=== PATIENT | female | born 1985 | race Caucasian/White ===

== ENCOUNTER 2017-01-03 06:49 | Inpatient (IN) | payer OTHER ==
[2017-01-03] MEDS ORDERED: Penicillin G Potassium 5 MILL.UNITS VIAL ONE (07:15)
[2017-01-03] MEDS: Lactated Ringer's 1,000 ML IV SCH ×3 (07:27→12:23)
[2017-01-03 07:54] VITALS: BMI 21.1
[2017-01-03] MEDS ORDERED: Ondansetron HCl/PF 4 MG/2 ML Vial IVP PRN ×3 (09:14→14:53)
[2017-01-03] MEDS ORDERED: Ibuprofen 800 MG TAB PO PRN (09:14)
[2017-01-03] MEDS ORDERED: LR / Pitocin 40 units/1000 ml 1,000 ML IV PRN (09:14)
[2017-01-03] MEDS ORDERED: Promethazine HCl 25 MG/ML VIAL IM PRN ×2 (09:14→10:54)
[2017-01-03] MEDS ORDERED: Acetaminophen/Codeine 30-300mg Tablet PO PRN ×3 (09:14→14:53)
[2017-01-03] MEDS ORDERED: Lidocaine 1% (PF) 30 ML VIAL SC PRN (09:14)
[2017-01-03] MEDS ORDERED: Penicillin G Potassium 5 MILL.UNITS in Sodium Chloride 0.9% 100 ML IVPB SCH (09:15)
[2017-01-03] MEDS ORDERED: LR 500 ML/Oxytocin 10 units 500 ML IV SCH ×2 (09:15)
--- NOTE | 2017-01-03 09:19 | PDOC.LDHP ---
Labor and Delivery H&P Chief complaint: contractions, loss of fluid HPI: Pt is a 31yo @ 36.1 weeks who presents w ROM this AM approx 0530 followed by regular contractions on presentation to L and D. Rec'd 2 doses of Celestone approx 10 days ago w hx and exam findings concerning for contractions. GBS+. Current gestational age (weeks): 36 Due date: 01/30/17 Dating criteria: last menstrual period, first trimester ultrasound Grav: 2 Para: 0 OB History Details: 2016 MAB Current complications: other ( ctx at 34 weeks) Abnormal US findings: No Current medications: pre-enrico vitamins, other (procardia 10mg PRN uterine contractions) Previous surgical history: none Allergies/Adverse Reactions: Allergies Allergy/AdvReac Type Severity Reaction Status Date / Time No Known Allergies Allergy Unverified 01/03/17 07:52 Social history: none - Physical Exam Vital signs reviewed and normal: yes General: breathing through contractions Lungs: nonlabored breathing Abdomen: gravid Extremeties: no edema FHT: category 1 [place] contractions every: 2 - Vaginal Exam cm dilated: 2 Effacement: 75% Station: -1 - OB Labs Blood type: O RH: positive Antibody Screen: negative HIV: negative RPR: negative HEPSAg: negative 1 hour GCT: negative GBS: positive Rubella: immune - Assessment L&D Assessment: labor (w ROM) - Plan Plan: admit to L&D, labor augmentation if indicated, GBS antibiotic prophylaxis , informed consent obtained, anesthesia consult for pain management -: A/P: 31yo @ 36.1 w ROM and spont labor. Nursery/clara team aware, PCN for GBS+, epidural at pt request.
[2017-01-03 09:31] LABS: Hematocrit 45.2 % (36.0-47.0); Mean Platelet Volume 7.2 fL (7.4-10.4); Red Blood Cell (RBC) Count 4.99 mill/uL (4.20-5.40); White Blood Cell (WBC) Count 9.1 thou/uL (4.8-10.8)
[2017-01-03] MEDS ORDERED: Fentanyl 4 mcg/Marc 0.1% Cadd 100 ML ONE (09:57)
[2017-01-03] MEDS ORDERED: Fentanyl 100 MCG/2 ML VIAL ONE (10:29)
[2017-01-03] MEDS ORDERED: Acetaminophen 325 MG TAB PO PRN (10:54)
[2017-01-03] MEDS ORDERED: diphenhydrAMINE 50 MG/ML VIAL IVP PRN (10:54)
[2017-01-03] MEDS ORDERED: Eucerin (Mineral Oil/Petrolatum,White) 30 gm Jar TOP PRN (10:54)
[2017-01-03] MEDS ORDERED: ePHEDrine/0.9% NaCl/PF SYRINGE 50 mg/10 ml SLOW IVP PRN (10:54)
[2017-01-03] MEDS ORDERED: Naloxone HCl 0.4 mg/ml Vial IVP PRN ×2 (10:54)
[2017-01-03] MEDS ORDERED: Lactated Ringer's 500 ML IV PRN (10:54)
[2017-01-03] MEDS ORDERED: Communication Order-Pharmacy FS SCH (11:00)
[2017-01-03] MEDS ORDERED: Fentanyl 4mcg/Marcaine 0.1% Cassette 100 ML EPIDURAL SCH (11:00)
[2017-01-03] MEDS ORDERED: diphenhydrAMINE 50 MG/ML VIAL ONE (11:09)
[2017-01-03] MEDS ORDERED: Penicillin G 2.5 MILL.units 2.5 MILL.UNITS in Premix Bag 1 BAG IVPB SCH (13:00)
--- NOTE | 2017-01-03 14:10 | PDOC.OPDEL ---
OB Operative/Delivery Note Delivery Dr/Surgeon: Evan Pre-Delivery Diagnosis: active labor, ruptured membrane Procedure/Post Delivery Dx: spontaneous vaginal delivery Weeks gestation: 36 - Findings A Sex: male - 1 min: 9 - 5 min: 9 - Additional Findings/Plan Placenta delivered: spontaneous Repaired Obstetrical Laceration: 1st degree Estimated blood loss: 300ml Post delivery plan: routine recovery
[2017-01-03] MEDS ORDERED: Benzocaine/Menthol 20-0.5% 60 ML CAN TOP PRN (14:53)
[2017-01-03] MEDS ORDERED: LR / Pitocin 40 units/1000 ml 1,000 ML IV SCH ×2 (14:53)
[2017-01-03] MEDS ORDERED: Adacel (T-DAP) 0.5 ML VIAL IM ONE (14:53)
[2017-01-03] MEDS ORDERED: Milk Of Magnesia 30 ML UDCUP PO PRN ×2 (14:53)
[2017-01-03] MEDS ORDERED: Bisacodyl 10 MG SUPP PR PRN ×2 (14:53)
[2017-01-03] MEDS ORDERED: diphenhydrAMINE 25 MG CAP PO PRN (14:53)
[2017-01-03] MEDS ORDERED: Lanolin Ointment 7 GM TUBE TOP PRN (14:53)
[2017-01-03] MEDS: Ibuprofen 800 MG TAB PO SCH ×2 (16:49→23:01)
[2017-01-03] MEDS ORDERED: Bupivacaine 0.25% HCL 30 ML VIAL ONE (20:50)
[2017-01-03] MEDS: Docusate Calcium (SURFAK) 240 MG CAP PO SCH (21:08)
[2017-01-04] MEDS: Ibuprofen 800 MG TAB PO SCH ×3 (06:09→21:06)
[2017-01-04] MEDS: Docusate Calcium (SURFAK) 240 MG CAP PO SCH ×4 (06:43→21:07)
[2017-01-04] MEDS: Ferrous Sulfate 325 MG TAB PO SCH ×4 (07:42→18:02)
--- NOTE | 2017-01-04 08:18 | PDOC.PP ---
Post Progress Note Post Day #: 1 Subjective: Doing well, sore, normal lochia. S/p consult w LC. PO intake tolerated: yes Flatus: yes Ambulation: yes Vital Signs (12 hours) Temp Pulse Resp BP 01/03/17 23:34 98.6 F 67 18 121/58 L 01/03/17 20:35 99.1 F 65 18 Weight Weight 135 lb - Physical Examination General: NAD Respiratory: non-labored breathing Neurological: no gross focal deficits Psychiatric: normal affect Result Diagrams: 01/03/17 07:27 Additional Labs: Post Labs Blood Type O POSITIVE 01/03/17 07:27 Hep Bs Antigen Non-Reactive S/CO (NonReactive) 01/03/17 07:27 (1) 36 weeks gestation of Code(s): Z3A.36 - 36 WEEKS GESTATION OF Status: Acute (2) Ruptured, membranes, premature Code(s): O42.90 - CHIKA ROM, 7TH0 BETW RUPT & ONST LABR, UNSP WEEKS OF GEST Status: Acute (3) Vaginal delivery Code(s): O80 - ENCOUNTER FOR FULL-TERM UNCOMPLICATED DELIVERY Status: Acute - Assessment/Plan A/P: PPD #1 doing well, baby in NBN but transitioning well. No concerns. Anticipate DC when baby DC.
[2017-01-04] MEDS: Prenatal Vitamin 1 TAB PO SCH (09:32)
[2017-01-04] MEDS: Acetaminophen 500 MG TAB PO PRN (15:11)
[2017-01-05] MEDS: Ibuprofen 800 MG TAB PO SCH ×2 (04:42→14:20)
[2017-01-05] MEDS: Acetaminophen 500 MG TAB PO PRN ×2 (04:42→10:24)
--- NOTE | 2017-01-05 07:03 | PDOC.PP ---
Post Progress Note Post Day #: 2 Subjective: Pain well controlled. Doing well. PO intake tolerated: yes Flatus: yes Ambulation: yes Vital Signs (12 hours) Temp Pulse Resp BP 01/04/17 20:24 98.2 F 74 18 119/65 Weight Weight 135 lb - Physical Examination General: NAD Cardiovascular: no m/r/g Respiratory: clear to auscultation bilaterally Abdominal: + bowel sounds, lochia, appropriately TTP Extremities: negative homans (B) Neurological: no gross focal deficits Psychiatric: A&Ox3, normal affect Result Diagrams: 01/03/17 07:27 Additional Labs: Post Labs Blood Type O POSITIVE 01/03/17 07:27 Hep Bs Antigen Non-Reactive S/CO (NonReactive) 01/03/17 07:27 (1) 36 weeks gestation of Code(s): Z3A.36 - 36 WEEKS GESTATION OF Status: Acute (2) Vaginal delivery Code(s): O80 - ENCOUNTER FOR FULL-TERM UNCOMPLICATED DELIVERY Status: Acute - Assessment/Plan 1. Doing well, stable for discharge. 2. Baby under photo lights for borderline bili...anticipate critical access hospital home this PM. 3. Motrin prn Prob critical access hospital at 1600 today.
--- NOTE | 2017-01-05 07:06 | PDOC.EVN ---
Event Note - Event Note Event Note: 01/05/17 DISCHARGE NOTE: S/P 36 weeks delivery. Delivery Evan MALDONADO. Patient did well . No acute needs identified on day 2. Discharge set at 1600 on day 2 pending baby's release. Home with motrin prn.
[2017-01-05] MEDS: Prenatal Vitamin 1 TAB PO SCH (08:38)
[2017-01-05] MEDS: Docusate Calcium (SURFAK) 240 MG CAP PO SCH (08:38)
[2017-01-05] MEDS: Ferrous Sulfate 325 MG TAB PO SCH (08:39)
--- NOTE | 2017-01-05 11:24 | DIS ---
DATE OF ADMISSION: 01/03/2017 DATE OF DISCHARGE: 01/05/2017 PRINCIPAL DIAGNOSES: 1. labor at 36 weeks. 2. delivery at 36 weeks. 3. Spontaneous vaginal . In brief, this is a patient of Dr. Gordon who underwent a spontaneous vaginal delivery at 36 weeks aft er spontaneous onset of labor. This patient has a full discharge note in the EMR/[employer]. For full details, please turn to the progress note dated today as well as the event discharge note da deborah today as well. Date of discharge was set as 01/05/2017 at 1600; pending the baby's approval for discharge.
[2017-01-05 16:14] VITALS: BP 118/62; TEMP 98.2
== END 2017-01-05 18:15 | disposition home or self-care (01) | DRG 775 ==
LOC: L&D 06:49 → 3SW 17:32
PROVIDERS: ADMIT Obstetrics & Gynecology; ATTEND Obstetrics & Gynecology
PROC: 10E0XZZ Delivery of Products of Conception, External Approach (ICD-10-PCS; principal; 2017-01-03)
PROC: 0HQ9XZZ Repair Perineum Skin, External Approach (ICD-10-PCS; 2017-01-03)
DX: O60.14X0 Preterm labor third trimester with preterm delivery third trimester, not applicable or unspecified (principal); O70.0 First degree perineal laceration during delivery; O99.824 Streptococcus B carrier state complicating childbirth; Z3A.36 36 weeks gestation of pregnancy; Z37.0 Single live birth
CPT/HCPCS: 85027; 86850; 86900; 86901; 87340; J1200; J2001; J2540; J3010; S0020